=== PATIENT | female | born 1995 | race Two or more races ===

== ENCOUNTER → 2025-03-24 | Outpatient (CLI) | payer BC, SELFPAY ==
--- NOTE | 2025-03-24 12:30 | XR_ITS ---
Examination: Pelvic ultrasound, transabdominal, complete Technique: Transabdominal ultrasound of the pelvis performed using grayscale imaging Date and time of exam: March 24, 2025 12:57 PM INDICATIONS: Painful menses 3-4 months FINDINGS: Uterus 9.0 cm endometrial stripe 0.9 cm No uterine mass or intrauterine gestation Right ovary 3.9 cm arterial flow 16mm follicular cyst Left ovary 2.8 cm arterial flow small follicles IMPRESSION: Negative examination
== END | disposition home or self-care (01) ==
LOC: CDIM 12:11
PROVIDERS: PCP Family Medicine; Referring Provider Family Medicine; Visit Provider Family Medicine
DX: N83.209 Unspecified ovarian cyst, unspecified side (principal)
CPT/HCPCS: 76856